=== PATIENT | male | born 1985 | race Caucasian/White ===

== ENCOUNTER 2022-09-19 07:21 | Emergency (ER) | payer BC, SELFPAY ==
[2022-09-19 07:31] VITALS: BP 124/86; PULSE 64; RESP 18; TEMP 36.4; O2SAT 97; BMI 24.1
--- NOTE | 2022-09-19 07:43 | USR_ITS ---
PROCEDURE INFORMATION: Exam: US Abdomen, Limited; Right Upper Quadrant Exam date and time: 09/19/2022 8:30 AM Age: 36 years old Clinical indication: Abdominal pain; Other: Ruq; Additional info: Ruq abd pain TECHNIQUE: Imaging protocol: Real time ultrasound of the abdomen with image documentation. Limited exam focused on the right upper quadrant. COMPARISON: No relevant prior studies available. FINDINGS: Liver: Normal. No masses. Gallbladder: Normal. No gallstones. There is no gallbladder wall thickening. Biliary ducts: Normal. No stones. No dilation. Pancreas: Visualized pancreas is unremarkable. Right kidney: Normal. No mass. No hydronephrosis. US/US gall bladder [id number] IMPRESSION: No acute findings.
[2022-09-19 07:59] LABS: Basophils # 0.1 10^3/uL (0.0-0.1); Basophils % 1.1 %; Eosinophils # 0.3 10^3/uL (0.0-0.8); Eosinophils % 3.7 %; Hematocrit 44.9 % (42.0-52.0); Lymphocytes # 1.5 10^3/uL (0.8-4.8); Lymphocytes % 16.2 %; Mean Corpuscular HGB Conc 33.4 g/dL (30.0-36.0); Mean Corpuscular Hemoglobin 28.4 pg (28.0-34.0); Mean Corpuscular Volume 84.9 fl (80-94); Mean Platelet Volume 9.7 fL (7.4-10.4); Monocytes # 0.4 10^3/uL (0.2-0.9); Monocytes % 4.7 %; Neutrophils # 6.75 10^3/uL (1.8-7.7); Nucleated Red Blood Cells % 0 %; Platelet Count 232 10^3/cmm (130-400); Red Blood Count 5.29 10^6/uL (4.1-5.3); Red Cell Distribution Width 12.4 % (12.1-15.1); White Blood Count 9.1 10^3/uL (4.0-10.0)
--- NOTE | 2022-09-19 08:06 | W.ED.ABDPA2 ---
HPI - Abdominal Pain General: Chief Complaint: Abdominal Pain Stated Complaint: abd pain Time Seen by Provider: 09/19/22 07:30 Source: patient Mode of arrival: ambulatory History of Present Illness: 36-year-old male comes in with complaint of abdominal pain he states he has had right upper quadrant abdominal discomfort for over a week. He has tried some hokq-tum-[id number] medications with no relief he has noticed that alcohol in any amounts he does not drink often but even a single drink or pizza seems to make it worse. He has pain epigastric and right upper quadrant he has not had any vomiting or diarrhea associate with visit no dysuria urgency or frequency no hematuria no hematemesis or coffee-ground emesis. No previous abdominal surgeries. MD elicited complaint: abdominal pain Onset (ago): week(s) (1) Pain Consistency: intermittent Location: RUQ Severity: mild Quality: cramping Radiation: none Exacerbating factors: eating (Alcohol and pizza) Relieving factors: nothing Associated Symptoms: Reports nausea; Denies anorexia, belching, bloating, change in bowel habits, change in stool character, chills, coffee ground emesis, constipation, GI cramping, diarrhea, dyspepsia, dysuria, excessive flatus, fever(s), heartburn, hematochezia, hematuria, hematemesis, fecal incontinence, loose stools, melena, poor appetite, syncope and vomiting Review of Systems Const: Denies: fever(s), chills, fatigue or malaise ENMT: Denies: throat pain, ear or mastoid pain, nasal discharge or nasal congestion Card: Denies: chest pain, palpitations or syncope Resp: Denies: dyspnea, productive cough or non-productive cough GI: Reports: abdominal pain and nausea; Denies: vomiting, hematemesis, coffee ground emesis, heartburn, diarrhea, constipation, bloating, GI cramping, belching, excessive flatus, fecal incontinence, change in bowel habits, change in stool character, hematochezia or melena : Denies: dysuria, urinary frequency, urinary urgency or hematuria Skin/Breast: Denies: rash or pruritus Physical Exam Const: COMMON NORMALS: no acute distress GENERAL APPEARANCE: cooperative and comfortable ORIENTATION/CONSCIOUSNESS: Yes awake, Yes oriented to person, Yes oriented to place and Yes oriented to time HENMT: COMMON NORMALS: normocephalic, atraumatic and hearing grossly normal bilaterally HEAD & SCALP: normocephalic and atraumatic Resp: COMMON NORMALS: normal respiratory effort, No retractions, No use of accessory muscles and clear to auscultation bilaterally AUSCULTATION: clear to auscultation bilaterally Cardio: COMMON NORMALS: regular rate, regular rhythm and No murmurs present (Cardio) RATE: regular rate RHYTHM: regular rhythm GI: COMMON NORMALS: Soft to palpation and No hepatosplenomegaly present AUSCULTATION: Yes normoactive bowel sounds PALPATION: Yes Soft to palpation, No Tenderness to palpation present (GI), No Guarding due to palpation present (GI) and Yes No hepatosplenomegaly present Extremity: COMMON NORMALS: normal to inspection, capillary refill normal, no clubbing, cyanosis or edema, no calf tenderness and no pedal edema Neuro: SENSORIUM/ORIENTATION: Yes oriented to person, Yes oriented to place and Yes oriented to time Skin: COMMON NORMALS: no rashes or lesions noted GENERAL SKIN EXAM: no rashes or lesions noted Course Vital Signs: Vital signs: Vital Signs Temperature 97.6 F 09/19/22 07:31 Pulse Rate 69 09/19/22 09:40 Respiratory Rate 18 09/19/22 09:40 Blood Pressure 137/73 09/19/22 09:40 Pulse Oximetry 97 09/19/22 09:40 Oxygen Delivery Me thod Room Air 09/19/22 09:39 MDM - Abdominal Pain Medical Decision Making Labs and imaging reviewed. Patient has no sign of acute cholecystitis at this time he may have biliary colic based on his symptoms. At this point think we can discharge patient home start him on PPI and set him up for an outpatient HIDA scan follow-up with general surgery. Medical Records I reviewed the patient's medical records. Lab Data I reviewed the patient's lab results. 09/19/22 07:50 09/19/22 07:50 Labs/Radiology: Radiology Impressions Gallbladder Ultrasound 09/19/22 07:43 IMPRESSION: No acute findings. Laboratory Results WBC 9.1 10^3/uL (4.0-10.0) 09/19/22 07:50 RBC 5.29 10^6/uL (4.1-5.3) 09/19/22 07:50 Hgb 15.0 g/dL (11.7-16.6) 09/19/22 07:50 Hct 44.9 % (42.0-52.0) 09/19/22 07:50 MCV 84.9 fl (80-94) 09/19/22 07:50 MCH 28.4 pg (28.0-34.0) 09/19/22 07:50 MCHC 33.4 g/dL (30.0-36.0) 09/19/22 07:50 RDW 12.4 % (12.1-15.1) 09/19/22 07:50 Plt Count 232 10^3/cmm (130-400) 09/19/22 07:50 MPV 9.7 fL (7.4-10.4) 09/19/22 07:50 Neut % (Auto) 74.0 % 09/19/22 07:50 Lymph % (Auto) 16.2 % 09/19/22 07:50 Stephens % (Auto) 4.7 % 09/19/22 07:50 Eos % (Auto) 3.7 % 09/19/22 07:50 Baso % (Auto) 1.1 % 09/19/22 07:50 Neut # (Auto) 6.75 10^3/uL (1.8-7.7) 09/19/22 07:50 Lymph # (Auto) 1.5 10^3/uL (0.8-4.8) 09/19/22 07:50 Stephens # (Auto) 0.4 10^3/uL (0.2-0.9) 09/19/22 07:50 Eos # (Auto) 0.3 10^3/uL (0.0-0.8) 09/19/22 07:50 Baso # (Auto) 0.1 10^3/uL (0.0-0.1) 09/19/22 07:50 Nucleated RBC % (auto) 0 % 09/19/22 07:50 Nucleated RBCs # 0.0 /100WBC 09/19/22 07:50 Sodium 135 mmol/L (136-145) L 09/19/22 07:50 Potassium 3.8 mmol/L (3.5-5.1) 09/19/22 07:50 Chloride 98 mmol/L (98-107) 09/19/22 07:50 Carbon Dioxide 29 mmol/L (22-29) 09/19/22 07:50 Anion Gap 11.8 (5-19) 09/19/22 07:50 BUN 8 mg/dL (6-20) 09/19/22 07:50 Creatinine 1.1 mg/dL (0.7-1.2) 09/19/22 07:50 GFR Calculation 74.9 mL/min (90-130) L 09/19/22 07:50 Glucose 95 mg/dL (65-115) 09/19/22 07:50 Calculated Osmolality 278 mOsm/kg (285-295) L 09/19/22 07:50 Lactic Acid 0.9 mmol/L (0.5-2.2) 09/19/22 08:19 Calcium 9.1 mg/dL (8.5-10.5) 09/19/22 07:50 Total Bilirubin 1.0 mg/dL (0.15-1.2) 09/19/22 07:50 AST 12 U/L (0-40) 09/19/22 07:50 ALT 14 U/L (0-41) 09/19/22 07:50 Alkaline Phosphatase 63 U/L (40-130) 09/19/22 07:50 Total Protein 7.3 g/dL (6.6-8.7) 09/19/22 07:50 Albumin 4.6 g/dL (3.5-5.2) 09/19/22 07:50 Globulin 2.7 g/dL (1.3-4.6) 09/19/22 07:50 Lipase 28 U/L (13-60) 09/19/22 07:50 Discharge Plan Discharge Patient Disposition: Home Clinical Impression: Biliary colic Condition: Stable Prescriptions: New omeprazole 40 mg capsule,delayed release(DR/EC) 40 mg PO DAILY 56 Days Qty: 60 0RF Discharge Orders: Discharge ED (Routine); Ordered 09/19/22 Ordered By: Mateo Vogt Discharge Diet: Usual diet Discharge Activity: Increase activity as tolerated Patient Instructions: Abdominal Pain (ED), Opioid Safety, Pain Management Activity Restrictions/Additional Instructions: You are seen today for biliary colic. Suspect you may have biliary dyskinesia. Case management will make arrangements for a follow-up with general surgery and a HIDA scan to be done as an outpatient. Recommend you avoid fatty foods fried foods tomato-based products and citrus fruits as those can aggravate gallbladder symptoms. Coding Level of Care Code ED [employer] Leader for Bonilla F[facility]
[2022-09-19 08:18] LABS: Alanine Aminotransferase 14 U/L (0-41); Albumin Level 4.6 g/dL (3.5-5.2); Alkaline Phosphatase 63 U/L (40-130); Anion Gap 11.8 (5-19); Aspartate Amino Transferase 12 U/L (0-40); Blood Urea Nitrogen 8 mg/dL (6-20); Calcium 9.1 mg/dL (8.5-10.5); Carbon Dioxide 29 mmol/L (22-29); Chloride 98 mmol/L (98-107); Globulin 2.7 g/dL (1.3-4.6); Glomerular Filtration Rate 74.9 mL/min (90-130); Glucose 95 mg/dL (65-115); Lipase 28 U/L (13-60); Osmolality Calculated 278 mOsm/kg (285-295); Potassium 3.8 mmol/L (3.5-5.1); Sodium 135 mmol/L (136-145); Total Protein 7.3 g/dL (6.6-8.7)
[2022-09-19 08:44] LABS: Lactic Sepsis W/Reflex 0.9 mmol/L (0.5-2.2)
[2022-09-19 09:39] VITALS: BP 137/73; PULSE 69; RESP 18; O2SAT 97
[2022-09-19 09:40] VITALS: BP 137/73; PULSE 69; RESP 18; O2SAT 97
--- NOTE | 2022-09-21 10:00 | DCPLANNER ---
Addendum entered by Ghazala Donis 10/16/22 08:50: This appointment was cancelled Addendum entered by Ghazala Donis 09/30/22 12:07: Patient has a follow up appointment scheduled for Thursday, October 13, 2022 at 9:[address] Montes with general surgery. Original Note: manager pe had message to schedule a follow up appointment for patient with general surgery. manager pe sent patients information to the front office staff at general surgery. Patients information will be printed and reviewed. Clinic will call patient with appointment information.
--- NOTE | 2022-09-21 13:31 | DCPLANNER ---
Addendum entered by Ghazala Donis 10/22/22 13:48: Patient did not attend appointment scheduled for a HIDA scan Original Note: disease case manager had message to schedule an outpatient HIDA scan for patient. disease case manager called patient to confirm that he wanted to have the HIDA scan ordered to confirm who patient sees for primary care. Patient stated that he does not have a primary care physician, but would like to get established with a provider. disease case manager called [facility] in [place]. Gave clinic patients information. A follow up appointment was scheduled for September at 11:00 with Brigitte Kat at [facility] [place]. disease case manager gave patient the appointment information. disease case manager faxed signed order to centralized scheduling, who will call patient with appointment information.
== END 2022-09-19 09:40 | disposition home or self-care (01) ==
PROVIDERS: Emergency Provider Family Medicine
DX: K80.50 Calculus of bile duct without cholangitis or cholecystitis without obstruction (principal)
CPT/HCPCS: 36415; 76705; 80053; 83605; 83690; 85025; 99284